=== PATIENT | female | born 1990 | race Caucasian/White ===

== ENCOUNTER 2020-01-06 16:57 | Emergency (ER) | payer BC, SELFPAY ==
[2020-01-06 17:00] VITALS: BP 139/75; PULSE 91; RESP 17; TEMP 37.1; O2SAT 100
--- NOTE | 2020-01-06 17:08 | ED.GENADULT ---
HPI - General Adult General Chief complaint: Nausea/Vomiting/Diarrhea Stated complaint: 16 wks , vomiting Time Seen by Provider: 01/06/20 17:04 Source: patient Mode of arrival: ambulatory Limitations: no limitations History of Present Illness HPI narrative: 29-year-old female is here for persistent vomiting most likely related to . She states that she has had a long-term issue with vomiting, but it has been worse during the . This episode started this morning when she got out of bed. She did speak with her OB prior to coming to the emergency room and states that at the prior visit they discussed the possibility of Zofran for home. Patient denies any fever or pain. She states she had one episode of diarrhea this afternoon prior to coming to the emergency room. she also denies any sick contact contacts. Onset (ago): hour(s) Severity: moderate Relieving factors: none Exacerbating factors: none Associated symptoms: headaches Treatments prior to arrival: none Related Data Home Medications Medication Instructions Recorded Confirmed doxylamine succinate [Unisom 25 mg PO HS PRN 01/06/20 (doxylamine)] [id number] fum-folic [id number] pkg PO 01/06/20 [Daily ] Allergies Allergy/AdvReac Type Severity Reaction Status Date / Time No Known Allergies Allergy Unverified 10/20/16 22:55 Review of Systems Review of Systems: All systems reviewed & are unremarkable except as noted in HPI and below PMFSH Past Medical History Medical History Anxiety Asthma Depression UTI (urinary tract infection) Surgical History Surgical History (Updated 01/06/20 @ 17:16 by Simona Kc PA-C) Previous section Family History Family History Father Hypertension Social History Social History (Updated 01/06/20 @ 17:17 by Simona Kc PA-C) Smoking status: Never smoker Alcohol intake: current Substance use: never Living arrangements: with family Gender identity (if verbalized by the patient): Female Exam Const: General: no acute distress and alert Orientation/consciousness: patient oriented x3 HENMT: Head: normal to inspection Other: lips are dry Eyes: Pupils: Equal, round and reactive pupils present Resp: Effort & Inspection: normal respiratory effort Auscultation: clear to auscultation bilaterally Cardio: Rate: regular rate Rhythm: regular rhythm GI: Inspection: other (gravid) Auscultation: normal bowel sounds Skin: General skin exam: normal color Extrem: General: normal to inspection Psych: Affect: Anxious affect present Course Course Emergency Course: Patient's is at the bedside now, states that he had Ch[employer] last night about 9:00, she she ate a salad. He is not ill with anything. Patient states that she is only had 1 episode of dry heaving since arriving here and receiving some Zofran and IV fluids. Pt is complaining of nausea again. UA shows 2+ ketones, will treat with D5NS. Pt feels much better after D5. Will discuss with Dr. Villalobos and discharge with anabela FORRESTER. Spoke with Dr. Villalobos. Agrees with plan. Vital Signs Vital signs: Vital Signs Temperature 37.1 C 01/06/20 17:00 Pulse Rate 91 01/06/20 17:00 Respiratory Rate 17 01/06/20 17:00 Blood Pressure 139/75 01/06/20 17:00 Pulse Oximetry 100 01/06/20 17:00 Temperature 37.1 C 01/06/20 17:00 Pulse Rate 91 01/06/20 17:00 Respiratory Rate 17 01/06/20 17:00 Blood Pressure 139/75 01/06/20 17:00 Pulse Oximetry 100 01/06/20 17:00 Medical Decision Making Vital Signs Vital Signs: Vital Signs Temperature 37.1 C 01/06/20 17:00 Pulse Rate 91 01/06/20 17:00 Respiratory Rate 17 01/06/20 17:00 Blood Pressure 139/75 01/06/20 17:00 Pulse Oximetry 100 01/06/20 17:00 Temperature 37.1 C 01/06/20 17:00 Pulse Rate 91 1
[2020-01-06 17:16] LABS: Basophils Percent Auto 0.2 % (0.2-1.2); Eosinophils Absolute Auto 0.1 K/mm3 (0-0.3); Eosinophils Percent Auto 0.7 % (0-4.4); Hematocrit 39.5 % (37.0-47.0); Hemoglobin 13.4 g/dL (12.0-15.0); Immature Granulocyte Absolute 0.05 K/mm3 (0.00-0.031); Immature Granulocyte Percent A 0.3 % (0-0.5); Lymphocytes Absolute Auto 2.35 K/mm3 (0.9-3.2); Lymphocytes Percent Auto 14.9 % (18.3-44.2); Mean Corpuscular HGB Conc 33.9 g/dl (32-36); Mean Corpuscular Hemoglobin 33.3 pg (26-34); Mean Platelet Volume 10.6 fl (7.4-10.4); Monocytes Absolute Auto 0.8 K/mm3 (0.1-0.6); Monocytes Percent Auto 4.9 % (2.6-8.5); Neutrophils Absolute Auto 12.5 K/mm3 (1.3-6.7); Platelet Count Result 280 k/mm3 (150-375); Red Blood Count 4.03 M/mm3 (4.2-5.4); Red Cell Distribution Width 13.1 % (11.5-14.5); White Blood Count 15.8 K/mm3 (4.5-10.0)
[2020-01-06] MEDS: ONDANSETRON INJ 4 MG/2 ML VIAL IV PUSH (17:16)
[2020-01-06] MEDS: SODIUM CHLORIDE 0.9% IV 1,000 ML 999 ML IV CONT (17:16)
[2020-01-06 17:32] LABS: Alanine Aminotransferase 21 U/L (4-35); Alkaline Phosphatase 55 U/L (38-126); Anion Gap 9 mmol/L (8-16); Aspartate Amino Transferase 29 U/L (14-36); Bilirubin,Total 0.4 mg/dL (0.2-1.3); Blood Urea Nitrogen 8 mg/dL (7-17); Calcium 9.1 mg/dL (8.4-10.2); Carbon Dioxide 24 mmol/L (22-30); Chloride 103 mmol/L (98-107); Estimated CRCL calculation 122 ml/min; Estimated Glomerular Filt Rate > 60; Glucose 106 mg/dL (65-105); Lipase 79 U/L (23-300); Potassium 3.6 mmol/L (3.4-5.0); Sodium 136 mmol/L (137-145)
[2020-01-06 18:21] VITALS: BP 110/72; PULSE 77
[2020-01-06 18:22] VITALS: BP 98/59; PULSE 83
[2020-01-06 18:22] LABS: Add Urine Microscopic? YES; Appearance Urine Cloudy (Clear); Bacteria Urine Trace /hpf; Bilirubin Urine Negative (Negative); Blood Urine Negative (Negative); Color Urine Yellow (Yellow); Glucose Urine UA Negative (Negative); Ketones Urine 2+ mg/dL (Negative); Leukocyte Esterase Ur 2+ LEU/UL (Negative); Mucus Urine Moderate /lpf; Nitrate Urine Negative (Negative); Protein Urine 1+ mg/dL (Negative); Specific Grav Ur 1.029 (1.001-1.035); Squamous Epithelial Cell Urine Many /hpf (Few); Urobilinogen Urine Negative mg/dL (<2.0)
[2020-01-06 18:23] VITALS: BP 114/66; PULSE 93
[2020-01-06 18:24] VITALS: BP 114/66; PULSE 93; RESP 18; O2SAT 100
[2020-01-06] MEDS: DEXTROSE 5%/0.9% SOD CHL 1,000 ML 999 ML IV CONT (18:42)
--- NOTE | 2020-01-06 19:05 | PC.NURSE ---
report to jeffrey fierro at this time, he has assumed pt care.
== END 2020-01-06 20:40 | disposition home or self-care (01) ==
PROVIDERS: Emergency Medicine; Emergency Provider Emergency Medicine
DX: O21.0 Mild hyperemesis gravidarum (principal); Z3A.16 16 weeks gestation of pregnancy; O99.512 Diseases of the respiratory system complicating pregnancy, second trimester; J45.909 Unspecified asthma, uncomplicated; Z87.440 Personal history of urinary (tract) infections
CPT/HCPCS: 36415; 80053; 81001; 83690; 85025; 96361; 96374; 99284; J2405; J7030; J7042

== ENCOUNTER 2021-08-12 15:28 | Emergency (ER) | payer BC, SELFPAY ==
[2021-08-12] VITALS (21 sets, daily range): BP systolic 110–125; BP diastolic 68–84; PULSE 64–90; RESP 12–23; TEMP 36.7; O2SAT 98–100
--- NOTE | 2021-08-12 15:34 | ECG_ITS ---
Measurements Intervals [place] Rate: 82 P: 58 NM: 156 QRS: 61 QRSD: 90 T: 49 QT: 370 QTc: 433 Interpretive Statements SINUS RHYTHM BASELINE ARTIFACT- II, III, AVF NORMAL ECG Electronically Signed On 08-16-2021 10:38:49 CDT by Callum Leger D.O.
[2021-08-12 16:08] LABS: Basophils Percent Auto 0.2 % (0.2-1.2); Hematocrit 39.6 % (37.0-47.0); Immature Granulocyte Absolute 0.02 K/mm3 (0.00-0.031); Immature Granulocyte Percent A 0.2 % (0-0.5); Lymphocytes Absolute Auto 0.72 K/mm3 (0.9-3.2); Lymphocytes Percent Auto 8.9 % (18.3-44.2); Mean Corpuscular HGB Conc 32.8 g/dl (32-36); Mean Corpuscular Hemoglobin 31.9 pg (26-34); Mean Corpuscular Volume 97.3 fl (80-100); Mean Platelet Volume 10.4 fl (7.4-10.4); Monocytes Absolute Auto 0.2 K/mm3 (0.1-0.6); Monocytes Percent Auto 2.7 % (2.6-8.5); Neutrophils Absolute Auto 7.1 K/mm3 (1.3-6.7); Platelet Count Result 279 k/mm3 (150-375); Red Blood Count 4.07 M/mm3 (4.2-5.4); Red Cell Distribution Width 13.7 % (11.5-14.5); White Blood Count 8.1 K/mm3 (4.5-10.0)
[2021-08-12 16:18] LABS: Alanine Aminotransferase 14 U/L (6-35); Albumin Level 4.8 g/dL (3.5-5.1); Alkaline Phosphatase 67 U/L (38-126); Anion Gap 4 mmol/L (8-16); Aspartate Amino Transferase 20 U/L (14-36); Bilirubin,Total 0.4 mg/dL (0.2-1.3); Blood Urea Nitrogen 7 mg/dL (7-17); Calcium 8.5 mg/dL (8.4-10.2); Carbon Dioxide 27 mmol/L (22-30); Chloride 107 mmol/L (98-107); Estimated Glomerular Filt Rate > 60; Glucose 106 mg/dL (65-110); Lipase 90 U/L (23-300); Potassium 3.9 mmol/L (3.4-5.0); Sodium 138 mmol/L (137-145)
--- NOTE | 2021-08-12 16:20 | ED.NAVMDI ---
HPI - Nausea/Vomiting/Diarrhea General Chief complaint: Nausea/Vomiting/Diarrhea Stated complaint: syncopal, vomit/diarrhea decreased po since yester Time Seen by Provider: 08/12/21 15:32 History of Present Illness HPI Narrative: Patient is a 31-year-old female who presents ER with syncope. Reports over the last 2 days she has been having diarrhea and vomiting. She reports everyone in her household is sick with something similar. Her child currently has parainfluenza and enterovirus. Today she got up off the couch was going to his bathroom when she got dizzy and lightheaded things went black and she passed out onto the ground. She fell onto some blankets did not strike her head. No focal weakness or numbness in arms or legs time. No blood in stool. She is currently on her period. She is breast-feeding. Related Data Home Medications Medication Instructions Recorded Confirmed doxylamine succinate 25 mg tablet 25 mg PO HS PRN Headache 01/06/20 (Unisom (doxylamine)) vits 75-iron 28 mg-folic pkg PO 01/06/20 acid 800 mcg-omega3 440 mg oral pack (Daily ) Allergies Allergy/AdvReac Type Severity Reaction Status Date / Time No Known Allergies Allergy Unverified 10/20/16 22:55 Review of Systems Review of Systems: All systems reviewed & are unremarkable except as noted in HPI and below Constitutional: Constitutional: Denies chills, Reports fatigue, Denies fever(s) and Reports weakness ENT: Denies nasal congestion and Denies sore throat Cardiovascular: Cardiovascular: Denies chest pain, Denies rapid heart rate and Denies radiating jaw, neck or arm pain Respiratory: Respiratory: Denies cough and Denies dyspnea Gastrointestinal: Gastrointestinal: Denies abdominal pain, Denies constipation, Reports diarrhea, Reports nausea and Reports vomiting Genitourinary: Genitourinary: Denies abnormal vaginal bleeding, Denies nocturia and Denies dysuria Neurologic: Reports dizziness, Denies numbness and Denies weakness PMFSH Past Medical History Medical History Anxiety Asthma Depression UTI (urinary tract infection) Surgical History Surgical History (Updated 01/06/20 @ 17:16 by Simona Kc PA-C) Previous section Family History Family History Father Hypertension Social History Social History (Updated 01/06/20 @ 17:17 by Simona Kc PA-C) Smoking status: Never smoker Alcohol intake: current Substance use: never Gender identity (if verbalized by the patient): Female Exam Narrative: GENERAL: Fatigued-appearing, well-nourished, and in no acute distress. HEAD: Normocephalic, atraumatic. CHEST: Clear to auscultation. No respiratory distress. HEART: Regular rate and rhythm. Normal peripheral pulses. ABDOMEN: Soft, nontender, nondistended. EXTREMITIES: Normal range of motion. No edema. SKIN: Warm, dry, no rash. NEURO: Alert and oriented x3. PSYCH: Normal mood and affect. Course Course Emergency Course: Patient feels much better after IV fluid and antiemetics. [facility] Vital Signs Vital signs: Vital Signs Temperature 98.1 F 08/12/21 15:34 Pulse Rate 83 08/12/21 15:34 Respiratory Rate 18 08/12/21 15:34 Blood Pressure 120/77 08/12/21 15:34 Pulse Oximetry 100 08/12/21 15:34 Oxygen Delivery Room Air 08/12/21 15:34 Temperature 98.1 F 08/12/21 15:34 Pulse Rate 72 08/12/21 18:30 Respiratory Rate 18 08/12/21 18:30 Blood Pressure 117/82 08/12/21 18:16 Pulse Oximetry 100 08/12/21 17:00 Oxygen Delivery Room Air 08/12/21 15:34 MDM - Nausea/Vomiting/Diarrhea Lab Data Result diagrams: 08/12/21 15:59 08/12/21 15:59 Labs: Lab Results 08/12/21 08/12/21 08/12/21 Range/Units 15:59 15:59 16:10 WBC 8.1 (4.5-10.0) K/mm3 RBC 4.07 L (4.2-5.4) M/m
[2021-08-12] MEDS: SODIUM CHLORIDE 0.9% IV 1,000 ML 999 ML IV CONT (16:24)
[2021-08-12] MEDS: ONDANSETRON INJ 4 MG/2 ML VIAL IV PUSH (16:24)
[2021-08-12 16:56] LABS: Appearance Urine Clear (Clear); Bilirubin Urine Negative (Negative); Blood Urine 2+ (Negative); Color Urine Yellow (Yellow); Glucose Urine UA Negative (Negative); Ketones Urine Negative (Negative); Leukocyte Esterase Ur Negative LEU/UL (Negative); Nitrate Urine Negative (Negative); Protein Urine Negative (Negative); Specific Grav Ur 1.015 (1.001-1.035); Urobilinogen Urine 0.2 mg/dL (<2.0)
[2021-08-12 17:31] LABS: Mucus Urine Rare /lpf; RBC Urine 0-2 /hpf (0-2); Squamous Epithelial Cell Urine Few /hpf (Few)
[2021-08-12 17:32] LABS: Add Urine Microscopic? YES
== END 2021-08-12 19:55 | disposition home or self-care (01) ==
PROVIDERS: Emergency Provider Emergency Medicine
DX: K52.9 Noninfective gastroenteritis and colitis, unspecified (principal); R55 Syncope and collapse
CPT/HCPCS: 36415; 80053; 81001; 81025; 83690; 85025; 93005; 96361; 96374; 99284; J2405; J7030

== ENCOUNTER 2021-08-12 21:49 | Emergency (ER) | payer BC, SELFPAY ==
--- NOTE | ~2021-08-12 | CT_ITS ---
EXAMINATION: CT BRAIN W/O DATE: 08/12/2021 23:44 INDICATION: Headache. TECHNIQUE: Computed tomography (CT) of the head was performed without intravenous contrast. The dose- length product was 605.33 mGy-cm. Automated exposure control and iterative reconstruction technique w ere employed. COMPARISON: No prior studies for comparison. FINDINGS: Normal brain parenchymal volume for age. Normal evans-white differentiation. No acute intrac ranial hemorrhage, infarction, mass or mass effect. No ventriculomegaly or midline shift. Midline sagittal images demonstrate a normal corpus callosum, c raniovertebral junction and sella turcica. Basilar cisterns are patent. Paranasal sinuses and mastoids are pneumatized. No depressed skull fractures. IMPRESSION: 1. No acute intracranial abnormality. Reviewed, dictated and finalized at location L.
--- NOTE | ~2021-08-12 | CT_ITS ---
EXAMINATION: CT abdomen pelvis w con DATE: 08/12/2021 23:45 INDICATION: Nausea, vomiting and diarrhea. Headache. Abdomen pain. TECHNIQUE: Computed tomography (CT) of the abdomen and pelvis was performed without intravenous contr ast. The dose-length product was 194.84 mGy-cm. Automated exposure control and iterative reconstructi on technique were employed. COMPARISON: None. FINDINGS: Lung bases unremarkable. Heart size normal. No significant pleural or pericardial effusion. No significant vascular abnormality. No lymphadenopathy. Nonobstructive bowel gas pattern. The liver , spleen, pancreas, adrenal glands and kidneys are unremarkable. No free air or free fluid. No acute osseous abnormality. IMPRESSION: 1. No acute abdominal abnormality. Reviewed, dictated and finalized at location L.
[2021-08-12 21:50] VITALS: BP 110/83; PULSE 98; RESP 18; TEMP 36.8; O2SAT 95
[2021-08-12 22:26] LABS: Basophils Percent Auto 0.5 % (0.2-1.2); Eosinophils Percent Auto 0.4 % (0-4.4); Hematocrit 37.9 % (37.0-47.0); Hemoglobin 12.2 g/dL (12.0-15.0); Immature Granulocyte Absolute 0.02 K/mm3 (0.00-0.031); Immature Granulocyte Percent A 0.3 % (0-0.5); Lymphocytes Absolute Auto 1.57 K/mm3 (0.9-3.2); Lymphocytes Percent Auto 19.7 % (18.3-44.2); Mean Corpuscular HGB Conc 32.2 g/dl (32-36); Mean Corpuscular Hemoglobin 31.4 pg (26-34); Mean Corpuscular Volume 97.4 fl (80-100); Mean Platelet Volume 10.4 fl (7.4-10.4); Monocytes Absolute Auto 0.5 K/mm3 (0.1-0.6); Monocytes Percent Auto 6.1 % (2.6-8.5); Neutrophils Absolute Auto 5.8 K/mm3 (1.3-6.7); Platelet Count Result 265 k/mm3 (150-375); Red Blood Count 3.89 M/mm3 (4.2-5.4); Red Cell Distribution Width 13.6 % (11.5-14.5)
[2021-08-12] MEDS: SODIUM CHLORIDE 0.9% IV 1,000 ML 999 ML IV CONT (22:26)
[2021-08-12] MEDS: FAMOTIDINE 20 MG/2 ML VIAL IV PUSH (22:28)
[2021-08-12 22:50] LABS: Alanine Aminotransferase 13 U/L (6-35); Albumin Level 4.2 g/dL (3.5-5.1); Alkaline Phosphatase 64 U/L (38-126); Anion Gap 8 mmol/L (8-16); Aspartate Amino Transferase 25 U/L (14-36); Bilirubin,Total 0.6 mg/dL (0.2-1.3); Blood Urea Nitrogen 7 mg/dL (7-17); Calcium 8.1 mg/dL (8.4-10.2); Carbon Dioxide 23 mmol/L (22-30); Chloride 108 mmol/L (98-107); Estimated CRCL calculation 81 ml/min; Estimated Glomerular Filt Rate > 60; Glucose 103 mg/dL (65-110); Lipase 88 U/L (23-300); Magnesium 1.5 mg/dL (1.6-2.3); Potassium 3.5 mmol/L (3.4-5.0); Sodium 139 mmol/L (137-145)
[2021-08-12 22:55] LABS: Platelet Estimate Adequate (Adequate); Tear Drop Cells 1+ (NORMAL)
[2021-08-12] MEDS: MAGNESIUM SULF 2 GM/WATER 50ML 2 GM/50 ML BAG IVPB (23:54)
--- NOTE | 2021-08-13 02:14 | ED.GENADULT ---
HPI - General Adult General Chief complaint: Nausea/Vomiting/Diarrhea Stated complaint: vomiting, abd pain Time Seen by Provider: 08/12/21 21:57 Source: RN notes reviewed History of Present Illness HPI narrative: Patient presents emergency department from home for nausea and vomiting. Patient states that symptoms began this morning states he has had numerous episodes of nausea and vomiting. States associate with abdominal pain that is diffuse across the abdomen described as aching patient also states that she has developed a severe frontal headache with her numerous episodes of emesis she denies any fevers or chills states she does have throat pain from her vomiting denies chest pain shortness of breath or diarrhea. The patient was seen earlier in the day today and had been feeling better after treatment and was discharged home but was unable to pickle solution maker her Zofran she states that prior to arrival she did take her Phenergan she had had at home patient does note that she has a young daughter at home who has enterovirus Related Data Home Medications Medication Instructions Recorded Confirmed doxylamine succinate 25 mg tablet 25 mg PO HS PRN Headache 01/06/20 (Unisom (doxylamine)) vits 75-iron 28 mg-folic pkg PO 01/06/20 acid 800 mcg-omega3 440 mg oral pack (Daily ) Allergies Allergy/AdvReac Type Severity Reaction Status Date / Time No Known Allergies Allergy Verified 08/12/21 21:54 Review of Systems Review of Systems: Gen.: Denies fevers or chills Eyes: Denies eye pain or visual change ENT: Denies congestion Respiratory: Denies shortness of breath or cough CV: Denies chest pain or palpitations GI: See HPI Musculoskeletal: Denies back pain or muscle pain Neuro: Reports headache Skin: Denies rash Except as documented, all other systems reviewed and negative [facility] Past Medical History Medical History Anxiety Asthma Depression UTI (urinary tract infection) Surgical History Surgical History (Updated 01/06/20 @ 17:16 by Simona Kc PA-C) Previous section Family History Family History Father Hypertension Social History Social History Smoking status: Never smoker Alcohol intake: current Substance use: never Gender identity (if verbalized by the patient): Female Exam Narrative: APPEARANCE: No acute distress, nontoxic, resting in bed HEENT: Normocephalic, atraumatic, OMM RESPIRATORY: No respiratory distress, clear to auscultation bilaterally with no rhonchi wheezing or rales CARDIOVASCULAR: RRR s murmur ABDOMINAL: Soft nondistended diffusely tender to palpation no rebound or guarding MUSCULOSKELETAl: Moves all extremities. No clubbing, cyanosis or edema. NEURO: Awake and alert. Following commands, speech normal, no focal deficits SKIN:: Warm, dry. Normal Color PSYCHIATRIC: Normal affect/mood Course Course Emergency Course: Reviewed old records patient with negative test from previous visit Patient states that they are feeling much better at this time. States headache is resolved. States abdominal pain has resolved. Repeat abdominal exam shows the patient's abdomen to be soft and nontender. Discussed with patient results of workup and diagnosis. Discussed need for follow-up with primary care physician, reasons to return to the emergency department in proper use of medication. Patient understands and agrees to current treatment plan Vital Signs Vital signs: Vital Signs Temperature 98.3 F 08/12/21 21:50 Pulse Rate 98 08/12/21 21:50 Respiratory Rate 18 08/12/21 21:50 Blood Pressure 110/83 08/12/21 21:50 Pulse Oximetry 95 08/12/21 21:50 Oxygen Delivery Room Air 08/12/21 21:50 Temperature 98.3 F 08/12/21 21:50 Pulse Rate 98 08/12/21 21:50 Respiratory
== END 2021-08-13 02:48 | disposition home or self-care (01) ==
PROVIDERS: Emergency Provider Emergency Medicine
DX: R11.2 Nausea with vomiting, unspecified (principal); R10.9 Unspecified abdominal pain; R51.9 Headache, unspecified
CPT/HCPCS: 36415; 70450; 74177; 80053; 83690; 83735; 85025; 96365; 96367; 96375; 99284; J0131; J3475; J7030; Q9967